=== PATIENT | female | born 1985 | race American Indian/Alaskan Native ===

== ENCOUNTER 2019-03-07 10:39 | Emergency (ER) | payer SELFPAY ==
[2019-03-07 11:10] VITALS: BP 149/89
[2019-03-07] MEDS ORDERED: PERCOCET 5/325 PO ONE (13:19)
[2019-03-07] MEDS ORDERED: ZOFRAN ODT PO ONE (13:19)
--- NOTE | 2019-03-07 14:48 | Emergency Department Report ---
ED Headache HPI - General Chief Complaint: Headache Stated Complaint: HEADACHE Time Seen by Provider: 03/07/19 13:11 Source: patient Exam Limitations: no limitations - History of Present Illness Initial Comments: 34-year-old female with past medical history obesity, hypertension, and sleep apnea presents to the hospital complaints of headache. Patient had a mild frontal headache this morning but then worsened after taking her nifedipine. Pt tolerated the medicine for 6 years while at 30mg but she has been having intermittent headaches since dose increased to 60mg 1 year ago. This makes her noncompliant with the medication. She took it again this morning because she felt her blood pressure might be high. Once again she developed a frontal headache. Positive nausea without vomiting. She denies fever, blurred vision, focal weakness, or focal numbness. She has a history of migraines, tension headaches, and sinus headaches in the past. patient patient take Goody powders and Motrin prior to arrival without improvement. PMD: None Allergies/Adverse Reactions: Allergies No Known Allergies Allergy (Unverified 03/07/19 10:45) Home Medications: Ambulatory Orders HYDROcodone/APAP 5-325 [Johnson 5/325] 1 each PO Q6HR PRN #14 tablet 03/07/19 Ibuprofen [Motrin] 800 mg PO Q8HR PRN #30 tablet 03/07/19 Ondansetron [Zofran Odt] 4 mg PO Q8HR #20 tab.rapdis 03/07/19 amLODIPine [Norvasc] 5 mg PO DAILY #30 tab 03/07/19 ED Review of Systems ROS: Stated complaint: HEADACHE Other details as noted in HPI Comment: All other systems reviewed and negative ED Past Medical Hx - Past Medical History Previous Medical History?: Yes Hx Hypertension: Yes Additional medical history: Sleep Apnea - Surgical History Past Surgical History?: Yes Hx Appendectomy: Yes Additional Surgical History: C section - Social History Smoking Status: Current Every Day Smoker Substance Use Type: Marijuana - Medications Home Medications: Home Medications Medication Instructions Recorded Confirmed Last Taken Type HYDROcodone/APAP 5-325 [Johnson 1 each PO Q6HR PRN #14 tablet 03/07/19 Unknown Rx 5/325] Ibuprofen [Motrin] 800 mg PO Q8HR PRN #30 tablet 03/07/19 Unknown Rx Ondansetron [Zofran Odt] 4 mg PO Q8HR #20 tab.rapdis 03/07/19 Unknown Rx amLODIPine [Norvasc] 5 mg PO DAILY #30 tab 03/07/19 Unknown Rx ED Physical Exam - General Limitations: No Limitations - Other Other exam information: Gen.: No acute distress Head: Atraumatic Eyes: Normal appearance, pupils equally reactive to light, extraocular movements intact ENT: Moist mucous membranes Neck: Normal appearance, no posterior midline tenderness, no meningismus Chest: Clear to auscultation bilaterally Cardiovascular: Regular rate and rhythm Abdomen: Normal appearance, soft, nontender, no rebound or guarding, normal bowel sounds Back: Normal appearance, nontender Extremity: Full range of motion, normal appearance Neuro: Alert oriented 3, clear speech, no focal motor or sensory deficit Psychiatric: Appropriate Skin: No rash ED Course Vital Signs 03/07/19 03/07/19 03/07/19 10:52 13:31 14:31 Temperature 97.8 F Pulse Rate 83 Respiratory 16 22 18 Rate Blood Pressure 149/89 O2 Sat by Pulse 100 Oximetry ED Medical Decision Making - Medical Decision Making Headache appears to be chronic and intermittent without any neurologic findings. Patient received Percocet for pain. Discussed possibility of cat scanning the patient. Patient declined CT scanning at this time. Follow-up encouraged. Patient will be offered an alternative blood pressure medication but ultimately will need PMD follow-up for management - Differential Diagnosis tension headache, cluster headache, adverse medication reaction, Critical Care Time: No Critical care attestation.: If time is entered above; I have spent that time in minutes in the direct care of this critically ill patient, excluding procedure time. ED Disposition Clinical Impression: Headache, Adverse drug reaction, HTN (hypertension) Disposition: DC-01 TO HOME OR SELFCARE Is pt being admited?: No Does the pt Need Aspirin: No Condition: Stable Instructions: Hypertension (ED), Acute Headache (ED) Additional Instructions: Take the medication as prescribed. Stop the nifedipine and start Norvasc 5 mg daily. The maximum dose of Norvasc 10 mg daily. Follow-up with your doctor or with the doctor/clinic provided for further medication adjustment and reassessment. Return if symptoms worsen as indicated by your discharge instructions. Prescriptions: Ibuprofen [Motrin] 800 mg PO Q8HR PRN #30 tablet PRN Reason: Pain, Moderate (4-6) HYDROcodone/APAP 5-325 [Johnson 5/325] 1 each PO Q6HR PRN #14 tablet PRN Reason: Pain amLODIPine [Norvasc] 5 mg PO DAILY #30 tab Ondansetron [Zofran Odt] 4 mg PO Q8HR #20 tab.wlae Referrals: PRIMARY CARE, [Primary Care Provider] - 3-5 Days [facility] [Provider Group] - 3-5 Days JAJA LAWSON MD [Staff Physician] - 3-5 Days Time of Disposition: 17:06
[2019-03-07] MEDS ORDERED: REGLAN IM ONE (14:54)
[2019-03-07] MEDS ORDERED: BENADRYL IM ONE (14:54)
== END 2019-03-07 17:14 | disposition home or self-care (01) ==
LOC: ED 10:39
DX: T39.1X1A Poisoning by 4-Aminophenol derivatives, accidental (unintentional), initial encounter (principal); F17.200 Nicotine dependence, unspecified, uncomplicated; F12.10 Cannabis abuse, uncomplicated; Y92.89 Other specified places as the place of occurrence of the external cause
CPT/HCPCS: 96372; 99283; J1200; J2765; Q0162